=== PATIENT | male | born 1985 | race Caucasian/White ===

== ENCOUNTER 2017-02-06 15:07 | Emergency (ER) | payer OTHER ==
--- NOTE | ~2017-02-06 | CR181 ---
[facility] RADIOLOGY TEXT RESULTS PATIENT: ROXANNE PRIETO LOCATION: [facility] : [birth year] UNIT #: [id number] AGE: [address]: Aubrie Healy APRN SEX: M ORDER DR: [id number] [facility] [address] [place], [place] [address] [id number] E MR#: [id number] Acc #: [id number] NAME: ROXANNE PRIETO : 1985 SEX: M STUDY DATE/TIME: 02/06/2017 16:41 UNIT: [facility] ROOM: STUDY DESCRIPTION: CR Lumbar Spine 2 or 3 Views Attending Physician: Aubrie Healy A.P.R.N. Referring Physician: Andreas Thacker M.D. Ordering Physician: Alexander Kuo M.D. Primary Care Physician: Diana Chin M.D. MEDICAL IMAGING REPORT This report is preliminary unless electronic signature is present EXAM Lumbar spine series. HISTORY Back pain onset 5 days ago after bending over. TECHNIQUE Three views of the lumbar spine were obtained and compared with 11/09/2015. FINDINGS AP and lateral projections of the lumbar segment show good mineralization of both anterior and posterior elements. They are all anatomically normal without indication of fracture, dislocation, or malignant change of a sclerotic or lytic type. There is no congenital defect noted. The sacroiliac joints are normal. IMPRESSION Normal lumbar spine series. Dictated by... Micheal Mascorro M.D. THIS IS AN ELECTRONICALLY VERIFIED REPORT Micheal Mascorro M.D. at 02/07/2017 9:35 AM MARY/ashley TD: 02/06/2017 22:29 JOB #: [id number] [facility] RADIOLOGY TEXT RESULTS PATIENT: ROXANNE PRIETO LOCATION: [facility] : [birth year] UNIT #: [id number] AGE: [address]: Aubrie Healy APRN SEX: M ORDER DR: MEDICAL IMAGING REPORT Page 1 of 1 COPY
[~2017-02-06 15:07] MED LIST: VIBRAMYCIN100 M1 PO
== END 2017-02-06 17:37 | disposition home or self-care (01) ==
LOC: CED 15:07 → CFTX 15:07
DX: M54.5 Low back pain (principal); R03.0 Elevated blood-pressure reading, without diagnosis of hypertension; G47.33 Obstructive sleep apnea (adult) (pediatric); Z87.891 Personal history of nicotine dependence
CPT/HCPCS: 72100; 96372; 99283; J1885

== ENCOUNTER 2017-02-26 20:58 | Emergency (ER) | payer OTHER ==
[~2017-02-26] VITALS: Ht 182.9 cm; Wt 154.2 kg
== END 2017-02-27 00:35 | disposition home or self-care (01) ==
LOC: CED 20:58
DX: R42 Dizziness and giddiness (principal); M46.1 Sacroiliitis, not elsewhere classified
CPT/HCPCS: 82947; 99284